=== PATIENT | male | born 1980 | race African-American/Black ===

== ENCOUNTER 2022-05-07 00:24 | Emergency (ER) | payer BC ==
[~2022-05-07] VITALS: Ht 182.9 cm; Wt 77.0 kg
[2022-05-07] MEDS ORDERED: IBUP-2029 MT (03:07)
[2022-05-07] MEDS ORDERED: CYCL10TA21 MT (03:07)
[2022-05-07] MEDS ORDERED: IBUPROFEN 600MG TABLET PO ONE (03:15)
[2022-05-07 03:20] VITALS: BP 118/78
== END 2022-05-07 03:20 | disposition home or self-care (01) ==
LOC: ER 00:24
DX: M54.50 Low back pain, unspecified (principal); V43.52XA Car driver injured in collision with other type car in traffic accident, initial encounter; Y93.89 Activity, other specified; Y92.488 Other paved roadways as the place of occurrence of the external cause
CPT/HCPCS: 99282

== ENCOUNTER 2024-12-18 21:38 | Emergency (ER) | payer BC ==
[~2024-12-18] VITALS: Ht 182.9 cm; Wt 78.0 kg
[~2024-12-18 21:38] MED LIST: CYCL10TA21 MT; IBUP-2029 MT
[2024-12-18 21:41] VITALS: O2SAT 100
[2024-12-18 22:17] VITALS: BP 144/87; PULSE 55; RESP 18; TEMP 36.9; O2SAT 100
== END 2024-12-18 23:34 | disposition home or self-care (01) ==
LOC: ER 21:38
DX: Z00.8 Encounter for other general examination (principal); Z79.899 Other long term (current) drug therapy
CPT/HCPCS: 87070; 87430; 99283